=== PATIENT | female | born 1960 | race Caucasian/White ===

== ENCOUNTER 2020-07-10 15:38 | Outpatient (CLI) | payer OTHER, SELFPAY ==
--- NOTE | ~2020-07-10 | MM_ITS ---
EXAMINATION: MM screening [facility] BI w shruthi HISTORY: Screening mammogram TECHNIQUE: Craniocaudal and mediolateral oblique 3-D tomosynthesis images were obtained and synthetic 2-D images were generated. CAD analysis was submitted and interpreted. COMPARISON: 03/11/2019, 11/28/2017, 11/17/2016 bilateral digital screening mammogram examinations BREAST PARENCHYMAL COMPOSITION: The breasts are almost entirely fatty. FINDINGS: There is no evidence of suspicious mass, calcification, or architectural distortion to sugg est malignancy in either breast. There has been no suspicious interval change. IMPRESSION: 1. No mammographic evidence of malignancy. 2. Recommend routine screening mammography in one year. BI-RADS Category 1: Negative Reviewed, dictated and finalized at location A.
== END 2020-07-10 15:39 | disposition home or self-care (01) ==
PROVIDERS: PCP Family Medicine; Visit Provider Family Medicine
DX: Z12.31 Encounter for screening mammogram for malignant neoplasm of breast (principal)
CPT/HCPCS: 77063; 77067

== ENCOUNTER 2021-04-08 23:41 | Emergency (ER) | payer SELFPAY ==
[2021-04-09 00:10] VITALS: BP 105/43; PULSE 86; RESP 18; TEMP 36.7; O2SAT 97
[2021-04-09 02:12] VITALS: BP 137/97; PULSE 76; RESP 18; O2SAT 96
--- NOTE | 2021-04-09 02:12 | PC.NURSE ---
Pt presents to ED with complaints of dizziness that onset earlier yesterday. Pt states she has been experiencing intermittent episodes throughout the week. Pt denies a diagnosis of vertigo, loc and visual disturbances at this time. Pt noted to be alert and oriented x4. Denies similar episodes in the past, chest pain, nvd, fever and chills. Pt has stable vitals and is in no obvious distress with spouse at bedside. Pt advised to press call button for assistance. Button and vitals within reach.
--- NOTE | 2021-04-09 03:06 | ED.GENADULT ---
HPI - General Adult General Chief complaint: Unspecified Stated complaint: htn, chills, anxiety, dizziness Time Seen by Provider: 04/09/21 01:34 History of Present Illness HPI narrative: Patient is a 60-year-old female who presents the emergency department with chief complaint of dizziness. The patient states that for the last several days she has been having symptoms that are intermittent that she describes as a dizziness sensation. Patient states it feels as though she feels lightheaded and also feels as though the room spinning. The patient states is worse with movement of her head reports that it is improved at rest. Patient states that the episodes come and go particular random reports. Related Data Allergies Allergy/AdvReac Type Severity Reaction Status Date / Time No Known Allergies Allergy Unknown Verified 04/09/21 00:16 Review of Systems Review of Systems: Narrative: A 10 system review of systems was completed on the patient and is negative except for what is stated in the HPI. Nursing and ancillary documentation was reviewed. 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 Gender identity (if verbalized by the patient): Female Spiritual care concerns: Yes Agree to blood products: Yes Exam Narrative: Exam Narrative: GENERAL: Well-appearing, well-nourished, and in no acute distress. HEAD: Normocephalic, atraumatic. EYES: PERRLA and EOMI. ENT: Nares clear, no rhinorrhea or epistaxis. Mucous membranes moist. NECK: Supple. CHEST: Clear to auscultation. No respiratory distress. HEART: Regular rate and rhythm. No murmur heard. Normal peripheral pulses. ABDOMEN: Soft, nontender, nondistended, normal active bowel sounds. EXTREMITIES: Normal range of motion. No edema. SKIN: Warm, dry, no rash. NEURO: No focal deficits. Alert and oriented x3. Patient is a positive [place] PSYCH: Normal mood and affect. Course Vital Signs Vital signs: Vital Signs Temperature 36.7 C 04/09/21 00:10 Pulse Rate 86 04/09/21 00:10 Respiratory Rate 18 04/09/21 00:10 Blood Pressure 105/43 L 04/09/21 00:10 Pulse Oximetry 97 04/09/21 00:10 Temperature 36.7 C 04/09/21 00:10 Pulse Rate 67 04/09/21 04:59 Respiratory Rate 18 04/09/21 04:59 Blood Pressure 124/86 04/09/21 04:59 Pulse Oximetry 100 04/09/21 04:59 Medical Decision Making Vital Signs Vital Signs: Vital Signs Temperature 36.7 C 04/09/21 00:10 Pulse Rate 86 04/09/21 00:10 Respiratory Rate 18 04/09/21 00:10 Blood Pressure 105/43 L 04/09/21 00:10 Pulse Oximetry 97 04/09/21 00:10 Temperature 36.7 C 04/09/21 00:10 Pulse Rate 67 04/09/21 04:59 Respiratory Rate 18 04/09/21 04:59 Blood Pressure 124/86 04/09/21 04:59 Pulse Oximetry 100 04/09/21 04:59 Lab Data Result diagrams: 04/09/21 03:57 04/09/21 03:57 Labs: Lab Results 04/09/21 04/09/21 04/09/21 Range/Units 03:57 03:57 04:42 WBC 11.6 H (4.5-10.0) K/mm3 RBC 5.54 H (4.2-5.4) M/mm3 Hgb 16.4 H (12.0-15.0) g/dL Hct 49.3 H (37.0-47.0) % MCV 89.0 (80-100) fl MCH 29.6 (26-34) pg MCHC 33.3
--- NOTE | 2021-04-09 03:23 | PC.NURSE ---
Pt resting on cart in its lowest position with call button and personal items within reach. No complaints or concerns voiced at this time.
[2021-04-09 04:03] LABS: Basophils Percent Auto 0.3 % (0.2-1.2); Eosinophils Absolute Auto 0.1 K/mm3 (0-0.3); Eosinophils Percent Auto 0.9 % (0-4.4); Hematocrit 49.3 % (37.0-47.0); Hemoglobin 16.4 g/dL (12.0-15.0); Immature Granulocyte Absolute 0.06 K/mm3 (0.00-0.031); Immature Granulocyte Percent A 0.5 % (0-0.5); Lymphocytes Absolute Auto 3.48 K/mm3 (0.9-3.2); Lymphocytes Percent Auto 29.9 % (18.3-44.2); Mean Corpuscular HGB Conc 33.3 g/dl (32-36); Mean Corpuscular Hemoglobin 29.6 pg (26-34); Mean Platelet Volume 10.3 fl (7.4-10.4); Monocytes Absolute Auto 0.8 K/mm3 (0.1-0.6); Monocytes Percent Auto 6.7 % (2.6-8.5); Neutrophils Absolute Auto 7.2 K/mm3 (1.3-6.7); Neutrophils Percent Auto 61.7 % (45.5-73.1); Platelet Count Result 245 k/mm3 (150-375); Red Blood Count 5.54 M/mm3 (4.2-5.4); Red Cell Distribution Width 13.2 % (11.5-14.5); White Blood Count 11.6 K/mm3 (4.5-10.0)
[2021-04-09 04:13] LABS: Alanine Aminotransferase 17 U/L (4-35); Albumin Level 4.2 g/dL (3.5-5.1); Alkaline Phosphatase 64 U/L (38-126); Anion Gap 8 mmol/L (8-16); Aspartate Amino Transferase 22 U/L (14-36); Bilirubin,Total 0.5 mg/dL (0.2-1.3); Blood Urea Nitrogen 15 mg/dL (7-17); Calcium 9.3 mg/dL (8.4-10.2); Carbon Dioxide 23 mmol/L (22-30); Chloride 109 mmol/L (98-107); Estimated CRCL calculation 87 ml/min; Estimated Glomerular Filt Rate > 60; Glucose 101 mg/dL (65-105); Potassium 4.1 mmol/L (3.4-5.0); Sodium 140 mmol/L (137-145)
[2021-04-09] MEDS: MECLIZINE HCL 25 MG TABLET PO (04:32)
--- NOTE | 2021-04-09 04:33 | PC.NURSE ---
pt ambulated in [place] to restroom to provide urine specimen.
--- NOTE | 2021-04-09 04:38 | PC.NURSE ---
Pt now back in room resting on cart in its lowest position with call button and personal items within reach. Pt alert and oriented x4 and is in no obvious distress with stable vitals. Spouse remains at bedside and pt aware to press call button for assistance.
--- NOTE | 2021-04-09 04:55 | PC.NURSE ---
Pt now back in room resting on cart in its lowest position with call button and personal items within reach. Advised to press call button for assistance. Spouse is present at bedside.
[2021-04-09 04:56] LABS: Add Urine Microscopic? YES; Appearance Urine Cloudy (Clear); Bacteria Urine 2+ /hpf; Bilirubin Urine Negative (Negative); Blood Urine 2+ (Negative); Color Urine Yellow (Yellow); Glucose Urine UA Negative (Negative); Ketones Urine Negative (Negative); Leukocyte Esterase Ur Negative LEU/UL (Negative); Mucus Urine Rare /lpf; Nitrate Urine Negative (Negative); Protein Urine Negative (Negative); Specific Grav Ur 1.019 (1.001-1.035); Squamous Epithelial Cell Urine Moderate /hpf (Few); Urobilinogen Urine Negative mg/dL (<2.0); WBC Urine 0-3 /hpf
[2021-04-09 04:59] VITALS: BP 124/86; PULSE 67; RESP 18; O2SAT 100
== END 2021-04-09 05:17 | disposition home or self-care (01) ==
PROVIDERS: Emergency Provider Emergency Medicine; PCP Physician Assistant
DX: R42 Dizziness and giddiness (principal); E78.5 Hyperlipidemia, unspecified; I10 Essential (primary) hypertension; F17.210 Nicotine dependence, cigarettes, uncomplicated
CPT/HCPCS: 36415; 80053; 81001; 85025; 99283; A9270

== ENCOUNTER 2021-08-13 09:57 | Outpatient (CLI) | payer OTHER, SELFPAY ==
--- NOTE | ~2021-08-13 | MM_ITS ---
EXAMINATION: MM screening [facility] BI w shruthi HISTORY: Screening mammogram TECHNIQUE: Craniocaudal and mediolateral oblique 3-D tomosynthesis images were obtained and synthetic 2-D images were generated. CAD analysis was submitted and interpreted. COMPARISON: 07/10/2020, 03/11/2019, 11/28/2017 BREAST PARENCHYMAL COMPOSITION: The breasts are almost entirely fatty. FINDINGS: There is no evidence of suspicious mass, calcification, or architectural distortion to sugg est malignancy in either breast. There has been no suspicious interval change. IMPRESSION: 1. No mammographic evidence of malignancy. 2. Recommend routine screening mammography in one year. BI-RADS Category 1: Negative Reviewed, dictated and finalized at location A.
== END 2021-08-13 09:58 | disposition home or self-care (01) ==
LOC: ANHIMG 10:03
PROVIDERS: PCP Family Medicine; Visit Provider Family Medicine
DX: Z12.31 Encounter for screening mammogram for malignant neoplasm of breast (principal)
CPT/HCPCS: 77063; 77067

== ENCOUNTER 2022-05-16 08:24 | Emergency (ER) | payer OTHER, SELFPAY ==
[2022-05-16 08:27] VITALS: BP 109/95; PULSE 102; RESP 14; TEMP 36.6; O2SAT 98
--- NOTE | 2022-05-16 09:03 | ED.EXTPRO ---
HPI - Extremity Problem General Chief complaint: Extremity Problem,Nontraumatic Stated complaint: spider bite Time Seen by Provider: 05/16/22 08:49 History of Present Illness HPI Narrative: 62-year-old female presents emergency room secondary spider bite to the left upper extremity. Happened on Monday. Now she is got increasing redness and swelling to the left forearm. Denies any chills or fevers. She not take anything for this. It is only to the left forearm area is where she is having this. She had no prior allergic type reaction. Related Data Allergies Allergy/AdvReac Type Severity Reaction Status Date / Time No Known Allergies Allergy Unknown Verified 05/16/22 09:00 Review of Systems Review of Systems: CONSTITUTIONAL: Denies fever, chills, or sweats. EYES: Denies visual changes, redness, or discharge. ENT: Denies rhinorrhea, congestion, sore throat, or otalgia. CARDIOVASCULAR: Denies chest pain, palpitations, or edema. RESPIRATORY: Denies cough or dyspnea. GASTROINTESTINAL: Denies abdominal pain, nausea, vomiting, or diarrhea. GENITOURINARY: Denies dysuria or hematuria. SKIN: Denies rash or itching. MUSCULOSKELETAL: Denies back pain, joint pain, or myalgia. Redness swelling to the left upper extremity from the wrist almost to the elbow region NEUROLOGIC: Denies headache, numbness, or weakness. PSYCHIATRIC: Denies anxiety or depression. 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 Gender identity (if verbalized by the patient): Female Spiritual care concerns: Yes Agree to blood products: Yes Exam Narrative: APPEARANCE: Well appearing, no pain or distress, well-nourished. Head normocephalic and atraumatic. NECK: Supple. No adenopathy, no masses. RESPIRATORY: Airway patent, respirations nonlabored. Clear to auscultation bilaterally, no rales, rhonchi, wheezing. CARDIOVASCULAR: Regular rate and rhythm without murmurs, rubs, or gallops. ABDOMINAL: Soft, nontender, nondistended, no hepatosplenomegaly Musculoskeletal: Moves all extremities. Strength/ROM intact, erythema noted to the left upper extremity on the volar aspect of the left forearm from about the wrist region almost to the elbow. Is noted to be some swelling to the area. There is no purulent drainage. Can see a small puncture site to the left wrist region. Good distal pulses and full range of motion NEURO: Alert. Cranial nerves II through XII intact. Normal gait. Good coordination. Nonfocal examination. SKIN:: Warm, dry. Normal Color PSYCHIATRIC: Normal affect/mood, normal interaction Course Vital Signs Vital signs: Vital Signs Temperature 97.9 F 05/16/22 08:27 Pulse Rate 102 H 05/16/22 08:27 Respiratory Rate 14 05/16/22 08:27 Blood Pressure 109/95 H 05/16/22 08:27 Pulse Oximetry 98 05/16/22 08:27 Oxygen Delivery Room Air 05/16/22 08:27 Temperature 97.9 F 05/16/22 08:27 Pulse Rate 102 H 05/16/22 08:27 Respiratory Rate 14 05/16/22 08:27 Blood Pressure 109/95 H 05/16/22 08:27 Pulse Oximetry 98 05/16/22 08:27 Oxygen Delivery Room Air 05/16/22 08:27 MDM - Extremity (Nontraumatic) MDM Narrative Medical decision making narrative: Patient has spider bite to the left wrist checked
[2022-05-16] MEDS: TETANUS,DIPHTHERIA,AC PERTUSSIS ADULT (0.5 ML) BOOSTRIX IM (09:07)
== END 2022-05-16 09:23 | disposition home or self-care (01) ==
LOC: ANHED 09:12
PROVIDERS: Emergency Provider Emergency Medicine; PCP Family Medicine
DX: L03.114 Cellulitis of left upper limb (principal); T63.301A Toxic effect of unspecified spider venom, accidental (unintentional), initial encounter; Z23 Encounter for immunization; E78.5 Hyperlipidemia, unspecified; I10 Essential (primary) hypertension; F17.210 Nicotine dependence, cigarettes, uncomplicated
CPT/HCPCS: 90471; 90715; 99283

== ENCOUNTER 2022-05-19 05:31 | Inpatient (IN) | payer OTHER, SELFPAY ==
[2022-05-19] VITALS (7 sets, daily range): BP systolic 114–136; BP diastolic 58–80; PULSE 84–96; RESP 16–18; TEMP 36.3–37.6; O2SAT 94–100; BMI 31.3
--- NOTE | ~2022-05-19 | US_ITS ---
EXAMINATION: US venous doppler UE DATE: 05/21/2022 10:36 INDICATION: Worsening left upper extremity edema. TECHNIQUE: Grayscale ultrasound images without and with compression and Doppler ultrasound images of the left upper extremity veins were obtained. COMPARISON: None. FINDINGS: The visualized portions of the left internal jugular vein, subclavian vein, axillary vein, brachial v eins, basilic vein, cephalic vein, radial vein, and ulnar vein are patent. Subcutaneous edema and ill -defined hypoechoic areas in the deep anterior wrist tissues in the area of clinical concern, describ ed as a bite in the tech annotations. IMPRESSION: 1. No deep venous thrombosis. 2. Irregular deep tissue fluid and/or phlegmon, with overlying edema, may represent cellulitis and/or deep tissue infection, developing abscess not excluded. Reviewed, dictated and finalized at location K. IMPRESSION: 1. No deep venous thrombosis. 2. Irregular deep tissue fluid and/or phlegmon, with overlying edema, may repre sent cellulitis and/or deep tissue infection, developing abscess not excluded.
--- NOTE | ~2022-05-19 | CT_ITS ---
EXAMINATION: CT UE LT w con DATE: 05/19/2022 17:40 INDICATION: Left upper extremity cellulitis. TECHNIQUE: Computed tomography (CT) of the left upper extremity was performed with 100 mL Omnipaque 3 00 intravenous contrast. Automated exposure control and iterative reconstruction technique were emplo yed. The dose-length product was 1039.78 mGy-cm. COMPARISON: None FINDINGS: Bone alignment is normal. No fracture. There is mild osteoarthritis of glenohumeral joint. There is degenerative cystic change in distal ulna. There is severe osteoarthritis of triscaphe joint and mild osteoarthritis of first carpometacarpal joint. No elbow joint effusion. There is fat strand ing and skin thickening in the arm and forearm. No abscess. IMPRESSION: 1. Subcutaneous edema in left upper extremity. No abscess. 2. Polyarticular osteoarthritis. Reviewed, dictated and finalized at location A.
--- NOTE | ~2022-05-19 | US_ITS ---
EXAMINATION: US soft tissue UE LT DATE: 05/20/2022 14:24 INDICATION: Soft tissue swelling at the volar aspect of the left wrist TECHNIQUE: Multiple grayscale and Doppler ultrasound images of the region of concern at the left wris t were obtained. COMPARISON: CT dated 05/19/2022 FINDINGS: There is skin thickening and nonloculated mild subcutaneous edema overlying the flexor tendons at the volar aspect of the wrist. There are few echogenic and shadowing foci at in the superficial subcutan eous tissues which on CT appear to correspond to couple surgical clips. No abscess. No tenosynovitis. IMPRESSION: 1. Cellulitis with skin thickening and subcutaneous edema at the volar aspect of the wrist. No absces s. Reviewed, dictated and finalized at location B. IMPRESSION: 1. Cellulitis with skin thickening and subcutaneous edema at the volar aspect o f the wrist. No abscess.
[2022-05-19] MEDS: MORPHINE SULFATE (*CRX) 4 MG/ML INJ IV PUSH ×3 (06:19→17:46)
--- NOTE | 2022-05-19 06:27 | ED.GENADULT ---
HPI - General Adult General Chief complaint: Skin/Abscess/Foreign Body Stated complaint: SWELLING, REDNESS ARM Time Seen by Provider: 05/19/22 05:40 History of Present Illness HPI narrative: Patient is a 62-year-old female who presents ER with redness of the left arm. Patient believes she was bit by a spider on 05/14/2022. She was seen in the ER on 05/16/2022 for erythema of her arm. She was started on cephalexin. She reports redness is spreading up her arm. No fevers or chills. She has pain throughout her arm where it is red. The bite patel on her left forearm were not draining any pus or any clear fluid. She maintains range of motion at her elbow and wrist. Related Data Allergies Allergy/AdvReac Type Severity Reaction Status Date / Time No Known Allergies Allergy Unknown Verified 05/19/22 05:34 Review of Systems Review of Systems: All systems reviewed & are unremarkable except as noted in HPI and below Constitutional: Constitutional: Denies chills, Denies fatigue and Denies fever(s) ENT: Denies nasal congestion and Denies sore throat Cardiovascular: Cardiovascular: Denies chest pain, Denies rapid heart rate and Denies radiating jaw, neck or arm pain Respiratory: Respiratory: Denies cough, Denies dyspnea and Denies wheezing Gastrointestinal: Gastrointestinal: Denies abdominal pain, Denies nausea and Denies vomiting Musculoskeletal: Musculoskeletal: Denies back pain, Denies arthralgias and Denies joint swelling Integumentary/Breasts: Skin/Breast: Reports pruritus, Reports erythema, Reports rash and Reports skin ulcer PMFSH Past Medical History Medical History Chronic pain in left foot Heavy smoker Hyperlipidemia Hypertension Under or uninsured Surgical History Surgical History History of cholecystectomy Family History Family History Other Family history of malignant neoplasm of stomach Social History Social History Smoking packs per day: 1 Smoking cigarettes per day: 20.0 Tobacco type: cigarettes Second hand tobacco smoke exposure: Yes Alcohol intake: never Substance use: never Substance use type: does not use 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 Gender identity (if verbalized by the patient): Female Spiritual care concerns: Yes Agree to blood products: Yes Exam Narrative: GENERAL: Well-appearing, well-nourished, and in no acute distress. HEAD: Normocephalic, atraumatic. EYES: PERRL and EOMI. ENT: Mucous membranes moist. CHEST: Clear to auscultation. No respiratory distress. HEART: Regular rate and rhythm. Normal peripheral pulses. EXTREMITIES: Normal range of motion. No edema. 6 SKIN: Warm, dry, no rash. Cellulitis of the left forearm volar aspect from the wrist extending up past the elbow to the mid upper arm. Tender and blanching. Bite patel to the wrist and midforearm without drainage. NEURO: Alert and oriented x3. PSYCH: Normal mood and affect. Course Vital Signs Vital signs: Vital Signs Temperature 97.4 F L 05/19/22 05:28 Pulse Rate 92 05/19/22 05:28 Respiratory Rate 18 05/19/22 05:28 Blood Pressure 128/58 L 05/19/22 05:28 Pulse Oximetry 96 05/19/22 05:28 Oxygen Delivery Room Air 05/19/22 05:28 Temperature 97.4 F L 05/19/22 05:28 Pulse Rate 92 05/19/22 05:28 Respiratory Rate 18 05/19/22 05:28 Blood Pressure 128/58 L 05/19/22 05:28 Pulse Oximetry 96 05/19/22 05:28 Oxygen Delivery Room Air 05/19/22 05:28 Medical Decision Making Vital Signs Vital Signs: Vital Signs Temperature 97.4 F L 05/19/22 05:28 Pulse Rate 92 05/19/22 05:28 Respiratory Rate 18 05/19/22 05:28 Blood Pressure 128/58 L 05/19/22 05:28 Pulse Oximetry 96 05/19/22 05:28 Oxygen Delivery Room Air 05/19/22 05:28 Te
[2022-05-19 06:43] LABS: Basophils Percent Auto 0.2 % (0.2-1.2); Eosinophils Absolute Auto 0.3 K/mm3 (0-0.3); Eosinophils Percent Auto 2.5 % (0-4.4); Hemoglobin 14.4 g/dL (12.0-15.0); Immature Granulocyte Absolute 0.08 K/mm3 (0.00-0.031); Immature Granulocyte Percent A 0.6 % (0-0.5); Lymphocytes Absolute Auto 0.93 K/mm3 (0.9-3.2); Lymphocytes Percent Auto 7.5 % (18.3-44.2); Mean Corpuscular HGB Conc 32.7 g/dl (32-36); Mean Corpuscular Hemoglobin 29.3 pg (26-34); Mean Corpuscular Volume 89.6 fl (80-100); Mean Platelet Volume 10.8 fl (7.4-10.4); Monocytes Absolute Auto 0.7 K/mm3 (0.1-0.6); Monocytes Percent Auto 5.6 % (2.6-8.5); Neutrophils Absolute Auto 10.3 K/mm3 (1.3-6.7); Neutrophils Percent Auto 83.6 % (45.5-73.1); Platelet Count Result 224 k/mm3 (150-375); Red Blood Count 4.91 M/mm3 (4.2-5.4); Red Cell Distribution Width 13.3 % (11.5-14.5); White Blood Count 12.4 K/mm3 (4.5-10.0)
[2022-05-19 06:53] LABS: Anion Gap 9 mmol/L (8-16); Blood Urea Nitrogen 14 mg/dL (7-17); CRP 2.4 mg/dL (<1.0); Calcium 8.7 mg/dL (8.4-10.2); Carbon Dioxide 23 mmol/L (22-30); Chloride 105 mmol/L (98-107); Estimated CRCL calculation 98 ml/min; Estimated Glomerular Filt Rate > 60; Glucose 119 mg/dL (65-110); Sodium 137 mmol/L (137-145)
[2022-05-19 07:23] LABS: Erythrocyte Sedimentation Rate 13 mm/hr (0-20)
[2022-05-19 07:24] LABS: SARS-CoV-2 RNA PCR Negative
--- NOTE | 2022-05-19 10:02 | ADMGEN ---
This patient, Yenifer Grover, was admitted to [facility] Surg Room 328-01at 0930. Patient/family oriented to hospital policies and general routines including ID bracelet, bed and alarms, visiting hours, pain management, procedures, bathroom and other care routines, personal items, smoking policy, room service/diet, and visiting hours. Information on how to activate the Rapid Response Team has been discussed. Patient/Family are encouraged to report perceived risks to care and to ask questions if they do not understand what they are told or what they should do.
--- NOTE | 2022-05-19 11:30 | PM.IMHP ---
H&P: HPI History of Present Illness Date/Time: 05/19/22 11:30 Chief Complaint: Bug bite Narrative: Patient is a 8-year-old female with a past medical history of hypertension, hyperlipidemia who presented to the ED with complaints erythremia, swelling, itching and pain to the left extremity. She stated that this all started on Monday night. Patient stated that she has a drain I at 3:00 a.m. in the morning due to itching, which created to get up. When she got up and the morning to make the bed she founded had spider. She said on Monday she had 2 knots 1 in her forearm and 1 on her wrist which appear to be stable. Monday she stated that she had known oz and her arm was completely swollen and she came to the hospital. She came to the hospital they prescribed her some Keflex. She said disease she has been taking her antibiotics we should be however she went to bed on Monday at 10:00 p.m. at 2:00 a.m. in the morning she woke up to burning and hurting arm. She stated that is very painful when it currently as a 4-10 however she just had a pain pill. She also stated that she is having many different sensations in her arm ranging from itching, burning, pain, fever. patient stated that her arm has been swollen like that for couple days. Her arm is very swollen has warmth and it is swollen double to her other arm. She has 2 spots 1 on her wrist and 1 on her forearm have look like to purulent scabs. She denies chest pain, shortness of breath, nausea, vomiting, fevers, sweats, visual or hearing changes, weakness or fatigue. She is being admitted to the hospitalist service as inpatient Review of Systems Review of Systems: All systems reviewed & are unremarkable except as noted in HPI and below PMFSH Past Medical History Medical History Chronic pain in left foot Heavy smoker Hyperlipidemia Hypertension Under or uninsured Surgical History Surgical History History of cholecystectomy Family History Family History Other Family history of malignant neoplasm of stomach Social History Social History Social History: Patient lives by herself, and is a . She elects her mother in law, Josefina Grover. She also has two step daughters. She denies having any pets. 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 Gender identity (if verbalized by the patient): Female Sexual Orientation (if Verbalized by the Patient): Straight or Heterosexual Spiritual care concerns: No Agree to blood products: Yes Meds Home Medications and Allergies Home Medications Medication Instructions Recorded Confirmed Type amlodipine 10 mg tablet 10 mg PO DAILY #30 tabs 12/20/21 05/19/22 Rx lorazepam 0.5 mg tablet 0.5 mg PO DAILY PRN stress #30 tabs 05/05/22 05/19/22 Rx hydrocodone 5 mg-acetaminophen 325 1 tablet PO Q6H PRN pain #120 tabs 05/10/22 05/19/22 Rx mg tablet cephalexin 500 mg capsule 500 mg PO Q8H #30 caps 05/16/22 05/19/22 Rx Allergies Allergy/AdvReac Type Severity Reaction Status Date / Time No Known Allergies Allergy Unknown Verified 05/19/22 05:34 Vital Signs Vital Signs - 24 hr 05/19/22 05:28 Temperature 97.4 F L Pulse Rate 92 Respiratory Rate 18 Blood Pressure 128/58 L Pulse Oximetry 96 Oxygen Delivery Room Air Exam Const: General: cooperative, no a
[2022-05-19] MEDS: HYDROcodone/acetaminophen (*CRX) 5-325 MG TABLET 1 TAB PO ×2 (15:47→20:05)
[2022-05-19] MEDS: MUPIROCIN 2% OINT 22 GM TUBE 1 APPLIC TOPICAL (16:20)
[2022-05-19] MEDS: BETAMETHASONE/CLOTRIMAZOLE CR 15 GM TUBE 1 APPLIC TOPICAL ×2 (16:21→19:59)
[2022-05-19] MEDS: cefTRIAXone 2 GM in SODIUM CHLORIDE 0.9% IV 100 ML 200 ML IVPB (17:45)
[2022-05-20] MEDS: MUPIROCIN 2% OINT 22 GM TUBE 1 APPLIC TOPICAL ×3 (04:14→20:15)
[2022-05-20] MEDS: HYDROcodone/acetaminophen (*CRX) 5-325 MG TABLET 1 TAB PO ×4 (04:16→20:15)
[2022-05-20] MEDS: MORPHINE SULFATE (*CRX) 4 MG/ML INJ IV PUSH ×4 (05:57→22:34)
[2022-05-20 06:00] VITALS: BP 112/74; PULSE 82; RESP 18; TEMP 36.7; O2SAT 95
[2022-05-20 06:38] LABS: Basophils Absolute Auto 0.1 K/mm3 (0.0-0.1); Basophils Percent Auto 0.4 % (0.2-1.2); Eosinophils Absolute Auto 0.4 K/mm3 (0-0.3); Eosinophils Percent Auto 2.5 % (0-4.4); Hematocrit 43.5 % (37.0-47.0); Immature Granulocyte Absolute 0.09 K/mm3 (0.00-0.031); Immature Granulocyte Percent A 0.6 % (0-0.5); Lymphocytes Absolute Auto 2.17 K/mm3 (0.9-3.2); Lymphocytes Percent Auto 15.3 % (18.3-44.2); Mean Corpuscular HGB Conc 32.2 g/dl (32-36); Mean Corpuscular Hemoglobin 29.3 pg (26-34); Mean Platelet Volume 10.4 fl (7.4-10.4); Monocytes Absolute Auto 0.9 K/mm3 (0.1-0.6); Monocytes Percent Auto 6.4 % (2.6-8.5); Neutrophils Absolute Auto 10.6 K/mm3 (1.3-6.7); Neutrophils Percent Auto 74.8 % (45.5-73.1); Platelet Count Result 218 k/mm3 (150-375); Red Blood Count 4.78 M/mm3 (4.2-5.4); Red Cell Distribution Width 13.3 % (11.5-14.5); White Blood Count 14.2 K/mm3 (4.5-10.0)
[2022-05-20 06:51] LABS: Alanine Aminotransferase 50 U/L (6-35); Albumin Level 3.9 g/dL (3.5-5.1); Alkaline Phosphatase 65 U/L (38-126); Anion Gap 8 mmol/L (8-16); Aspartate Amino Transferase 33 U/L (14-36); Blood Urea Nitrogen 8 mg/dL (7-17); Calcium 8.4 mg/dL (8.4-10.2); Carbon Dioxide 25 mmol/L (22-30); Chloride 106 mmol/L (98-107); Estimated CRCL calculation 85 ml/min; Estimated Glomerular Filt Rate > 60; Glucose 121 mg/dL (65-110); Magnesium 2.1 mg/dL (1.6-2.3); Sodium 139 mmol/L (137-145)
[2022-05-20] MEDS: amLODIPine BESYLATE 5 MG TABLET 10 MG PO (08:23)
[2022-05-20] MEDS: BETAMETHASONE/CLOTRIMAZOLE CR 15 GM TUBE 1 APPLIC TOPICAL ×2 (08:25→20:15)
--- NOTE | 2022-05-20 08:30 | PM.IMPN ---
Progress Note: A&P Assessment and Plan (1) Cellulitis: Code(s): L03.90 - Cellulitis, unspecified Status: Acute Assessment and Plan: Left arm is swollen, red, with warmth Continue Vancomycin, add ceftriaxone WBC 14.2 Wound care consult, see wound note Trend redness, warmth, and swelling Swelling is worse today pain medications Trend induration CT with contrast of the left arm (2) Bug bite: Code(s): W57.XXXA - Bitten or stung by nonvenomous insect and other nonvenomous arthropods, initial encounter Status: Acute Assessment and Plan: Patient reported a spider bite Wound care consult see above (cellulitis) Not convinced this is a bug bit at this point (3) Primary hypertension: Code(s): I10 - Essential (primary) hypertension Status: Acute Assessment and Plan: BP is 103/63 Continue home amlodipine 10mg Trend BP Adjust therapy as indicated Time Spent With Patient Time with patient: Greater than 35 minutes Subjective Date/time seen: 05/20/22829 Interval history: 05/20/22829 She herself is feeling ok, she denies chest pain, shortness of breath, nausea, vomiting, diarrhea, constipation, weakness, or fatigue. She did however state that she thinks her arm is worse. It did appear to be more edematous. She also has a new spot forming and it also has a knot under it. CT did not show any acute findings other than edema. Talked to Dr. Gurrola about the arm, as the main concern is compartment syndrome. 05/19/22? 11:30 Patient is a 8-year-old female with a past medical history of hypertension, hyperlipidemia who presented to the ED with complaints erythremia, swelling, itching and pain to the left extremity.? She stated that this all started on? Monday night.? Patient stated that she has a drain I at 3:00 a.m. in the morning due to itching, which created to get up.? When she got up and the morning to make the bed she founded had spider.? She said on Monday she had 2 knots 1 in her forearm and 1 on her wrist which appear to be stable.? Monday she stated that she had known oz and her arm was completely swollen and she came to the hospital.? She came to the hospital they prescribed her some Keflex.? She said disease she has been taking her antibiotics we should be however she went to bed on Monday at 10:00 p.m. at 2:00 a.m. in the morning she woke up to burning and hurting arm.? She stated that is very painful when it currently as a 4-10 however she just had a pain pill.? She also stated that she is having many different sensations in her arm ranging from itching, burning, pain, fever. patient stated that her arm has been swollen like that for couple days.? Her arm is very swollen has warmth and it is swollen double to her other arm.? She has 2 spots 1 on her wrist and 1 on her forearm have look like to purulent scabs. She denies chest pain, shortness of breath, nausea, vomiting, fevers, sweats, visual or hearing changes, weakness or fatigue.? Review of Systems Review of Systems: All systems reviewed & are unremarkable except as noted in HPI and below Exam Const: General: cooperative, no acute distress, well developed, alert, awake, anxious and uncomfortable Nutritional Appearance: well nourished and overweight Orientation/consciousness: oriented to person, oriented to place, oriented to time and patient oriented x3 Limitations: no limitations HENMT: Head: normal to inspection Ears: hearing grossly normal bilaterally General nose exam: Normal external nose present Mouth: Yes Normal oral and palatal mucosa present, Yes lip normal and Yes tongue normal Teeth and gingiva: abnormal tooth and associated gingiva and poor dentition Eyes: General: appearance normal, both eyes and all related structures Neck: Neck: normal visual inspection, full ROM, trachea midline and supple Chest: Chest palpation & inspection: normal inspectio
[2022-05-20 11:42] VITALS: BP 103/63
[2022-05-20 14:00] VITALS: BP 115/81; PULSE 70; RESP 16; TEMP 36.6; O2SAT 96
[2022-05-20] MEDS: cefTRIAXone 2 GM in SODIUM CHLORIDE 0.9% IV 100 ML 200 ML IVPB (14:43)
--- NOTE | 2022-05-20 17:32 | PM.CNGS ---
Assessment and Plan Assessment and plan (1) Cellulitis: Code(s): L03.90 - Cellulitis, unspecified Status: Acute Assessment and Plan: I agree that it is cellulitis of unknown etiology. There is nothing draining that we can culture at this time that I see. There appears to be 2 slightly brown areas of skin they were very small 1 on the volar surface of the wrist the other 1 Ladarius in the mid forearm that do not appear to be actual bites but may have been injury sites on the epidermis. Careful compression of both these reveals no drainage of pus. Both CT and ultrasound of the arm does not show any drainable abscess cavities. Therefore, recommend continue IOP IV antibiotics, elevate the arm above the level of the heart at all times if possible continue good range of motion perhaps consider OT consultation for this. If not already on 1 May consider upper extremity venous Dopplers on this side to be sure there is not a blood clot. (2) Heavy smoker: Code(s): F17.200 - Nicotine dependence, unspecified, uncomplicated Status: Acute Assessment and Plan: Recommend cessation. May need neck a Nicotine patch while in the hospital. History of Present Illness Consult details Consult date: 05/20/22 Reason for consult: other (Left arm swelling and possible bug bite) Requesting physician: Nicola Luis APN-C Narrative: This patient is a pleasant overweight 62-year-old white female who states that 2 days prior coming to the hospital she was out working in her yd doing some weed whacking. [place]. She began noticing some itching of her arms while she was sleeping later that night and did scratch on her arms. Mainly her left forearm. Following morning she awoke still having some itching and found out large spider in her bed. She had 2 small sites that she thought might be spider bites on the volar surface of her left forearm. One near the wrist the other 1 Ladarius in the mid forearm. She came to the hospital and was seen as an outpatient and put on cephalexin. However with it not improving and continued worsening swelling she came back 2 days ago and was admitted and placed on ceftriaxone and vancomycin. She continues to elevate the arm to place ice on it but it was felt that perhaps it was getting worse so is asked to see the patient this date. Patient has further history that she does get her nails done. She has never hadMRSA that she knows of. Review of Systems Review of Systems: All systems reviewed & are unremarkable except as noted in HPI and below (HPI) Constitutional: Constitutional: Reports as per HPI, Denies chills and Denies fever(s) Eyes: Eyes: Reports no additional eye complaints ENT: Reports Normal hearing present and Denies dizziness Cardiovascular: Cardiovascular: Reports no additional cardiovascular complaints, Denies chest pain and Denies irregular heart rhythm Respiratory: Respiratory: Reports no additional respiratory complaints Gastrointestinal: Gastrointestinal: Reports no additional gastrointestinal complaints, Denies abdominal pain and Denies bloating Genitourinary: Genitourinary: Denies hematuria Musculoskeletal: Musculoskeletal: Denies back pain Integumentary/Breasts: Skin/Breast: Reports system reviewed and no additional complaints, except as docu Neurologic: Reports Normal hearing present, Denies Abnormal speech present, Denies confusion and Denies dizziness Psychiatric: Psychiatric: Reports no additional psychiatric complaints and Denies confusion Endocrine: Endocrine: Reports no additional endocrine complaints Hematologic/Lymphatic: Hematologic/Lymphatic: Denies easy bleeding and Denies easy bruising Allergic/Immunologic: Allergic/Immunologic: Reports no additional allergic/immunologic complaints [facility] Past Medical History Medical History Chronic pain in left foot Heavy smoker Hyperlipidemia Hypertension Under or uninsured Surgical His
[2022-05-20 18:07] VITALS: BP 123/63
[2022-05-20 19:17] LABS: Vancomycin Trough 11.2 ug/mL (10.0-20.0)
[2022-05-20 21:39] VITALS: BP 119/80; PULSE 62; RESP 18; TEMP 36.4; O2SAT 97
[2022-05-21] MEDS: MORPHINE SULFATE (*CRX) 4 MG/ML INJ IV PUSH ×4 (04:34→19:27)
[2022-05-21 05:34] VITALS: BP 117/81; PULSE 78; RESP 18; TEMP 36.3; O2SAT 93
[2022-05-21 07:28] LABS: Basophils Absolute Auto 0.1 K/mm3 (0.0-0.1); Basophils Percent Auto 0.4 % (0.2-1.2); Eosinophils Absolute Auto 0.3 K/mm3 (0-0.3); Eosinophils Percent Auto 2.8 % (0-4.4); Hemoglobin 13.3 g/dL (12.0-15.0); Immature Granulocyte Absolute 0.11 K/mm3 (0.00-0.031); Immature Granulocyte Percent A 0.9 % (0-0.5); Lymphocytes Percent Auto 16.4 % (18.3-44.2); Mean Corpuscular HGB Conc 32.4 g/dl (32-36); Mean Corpuscular Hemoglobin 29.5 pg (26-34); Mean Corpuscular Volume 90.9 fl (80-100); Mean Platelet Volume 10.4 fl (7.4-10.4); Monocytes Absolute Auto 0.9 K/mm3 (0.1-0.6); Monocytes Percent Auto 7.7 % (2.6-8.5); Neutrophils Absolute Auto 8.3 K/mm3 (1.3-6.7); Neutrophils Percent Auto 71.8 % (45.5-73.1); Platelet Count Result 215 k/mm3 (150-375); Red Blood Count 4.51 M/mm3 (4.2-5.4); Red Cell Distribution Width 13.4 % (11.5-14.5); White Blood Count 11.6 K/mm3 (4.5-10.0)
[2022-05-21 07:40] LABS: Alanine Aminotransferase 133 U/L (6-35); Albumin Level 3.8 g/dL (3.5-5.1); Alkaline Phosphatase 83 U/L (38-126); Anion Gap 3 mmol/L (8-16); Aspartate Amino Transferase 94 U/L (14-36); Bilirubin,Total 0.6 mg/dL (0.2-1.3); Blood Urea Nitrogen 10 mg/dL (7-17); Calcium 8.4 mg/dL (8.4-10.2); Carbon Dioxide 28 mmol/L (22-30); Chloride 107 mmol/L (98-107); Estimated CRCL calculation 85 ml/min; Estimated Glomerular Filt Rate > 60; Glucose 100 mg/dL (65-110); Magnesium 2.2 mg/dL (1.6-2.3); Potassium 4.3 mmol/L (3.4-5.0); Sodium 138 mmol/L (137-145)
[2022-05-21] MEDS: HYDROcodone/acetaminophen (*CRX) 5-325 MG TABLET 1 TAB PO ×3 (08:19→22:17)
[2022-05-21] MEDS: amLODIPine BESYLATE 5 MG TABLET 10 MG PO (08:19)
--- NOTE | 2022-05-21 10:00 | PM.IMPN ---
Progress Note: A&P Assessment and Plan (1) Cellulitis: Code(s): L03.90 - Cellulitis, unspecified Status: Acute Assessment and Plan: Left arm is swollen, red, with warmth Continue Vancomycin, add ceftriaxone WBC 11.6 Wound care consult, see wound note Trend redness, warmth, and swelling Swelling seems to be better today along with the redness and warmth pain medications Trend induration CT with contrast of the left arm Subcutaneous edema no abscess venous Dopplers pending soft tissue ultrasound found cellulitis with skin thickening and subcutaneous edema (2) Bug bite: Code(s): W57.XXXA - Bitten or stung by nonvenomous insect and other nonvenomous arthropods, initial encounter Status: Acute Assessment and Plan: Patient reported a spider bite Wound care consult see above (cellulitis) Not convinced this is a bug bit at this point (3) Primary hypertension: Code(s): I10 - Essential (primary) hypertension Status: Acute Assessment and Plan: BP is 117/81 Continue home amlodipine 10mg Trend BP Adjust therapy as indicated Time Spent With Patient Time with patient: Greater than 35 minutes Subjective Date/time seen: 05/21/22 10:00 Interval history: 05/21/22 10:00 Patient stated she is feeling okay today. She stated that she woke up in feels a little groggy. She did state that she has been in a little in the tired side. Her pain is still a 5/10 she denies any chest pain, nausea, vomiting, diarrhea, constipation, weakness or fatigue. She did state that her arm was very sore to touch. The heat seems to be dissipating. Venous Dopplers have been ordered to rule out a blood clot the knot has moved from the middle of the arm towards the elbow. WBCs seem to be trending down. ultrasound of her arm showed no abscess just edema and soft tissue swelling. 05/20/22 0830 She herself is feeling ok, she denies chest pain, shortness of breath, nausea, vomiting, diarrhea, constipation, weakness, or fatigue. She did however state that she thinks her arm is worse. It did appear to be more edematous. She also has a new spot forming and it also has a knot under it. CT did not show any acute findings other than edema. Talked to Dr. Gurrola about the arm, as the main concern is compartment syndrome. 05/19/22? 11:30 Patient is a 8-year-old female with a past medical history of hypertension, hyperlipidemia who presented to the ED with complaints erythremia, swelling, itching and pain to the left extremity.? She stated that this all started on? Monday night.? Patient stated that she has a drain I at 3:00 a.m. in the morning due to itching, which created to get up.? When she got up and the morning to make the bed she founded had spider.? She said on Monday she had 2 knots 1 in her forearm and 1 on her wrist which appear to be stable.? Monday she stated that she had known oz and her arm was completely swollen and she came to the hospital.? She came to the hospital they prescribed her some Keflex.? She said disease she has been taking her antibiotics we should be however she went to bed on Monday at 10:00 p.m. at 2:00 a.m. in the morning she woke up to burning and hurting arm.? She stated that is very painful when it currently as a 4-10 however she just had a pain pill.? She also stated that she is having many different sensations in her arm ranging from itching, burning, pain, fever. patient stated that her arm has been swollen like that for couple days.? Her arm is very swollen has warmth and it is swollen double to her other arm.? She has 2 spots 1 on her wrist and 1 on her forearm have look like to purulent scabs. She denies chest pain, shortness of breath, nausea, vomiting, fevers, sweats, visual or hearing changes, weakness or fatigue.? Review of Systems Review of Systems: All systems reviewed & are unremarkable except as noted in HPI and below
[2022-05-21] MEDS: MUPIROCIN 2% OINT 22 GM TUBE 1 APPLIC TOPICAL ×2 (11:00→20:31)
[2022-05-21] MEDS: BETAMETHASONE/CLOTRIMAZOLE CR 15 GM TUBE 1 APPLIC TOPICAL ×2 (11:01→20:31)
[2022-05-21 14:00] VITALS: BP 115/66; PULSE 79; RESP 16; TEMP 36.1; O2SAT 92
[2022-05-21] MEDS: cefTRIAXone 2 GM in SODIUM CHLORIDE 0.9% IV 100 ML 200 ML IVPB (18:34)
[2022-05-21 21:43] VITALS: BP 101/68; PULSE 67; RESP 18; TEMP 36.4; O2SAT 95
--- NOTE | 2022-05-21 23:45 | PM.PNGS ---
Progress Note: A&P Assessment and Plan (1) Cellulitis: Code(s): L03.90 - Cellulitis, unspecified Status: Acute Assessment and Plan: Possibly somewhat improved. White count still slightly high result of vascular ultrasound upper extremity noted, no DVT. Other findings of some hypoechoic areas most likely is edema in between the tissues. Would consider at least partial time wearing Alex wraps to give compression and better venous return in the upper extremity. (2) Narcotic dependence: Code(s): F11.20 - Opioid dependence, uncomplicated Status: Acute (3) BMI 35.0-35.9,adult: Code(s): Z68.35 - Body mass index [BMI] 35.0-35.9, adult Status: Acute Assessment and Plan: encouraged maintenance of low-fat diet and portion control (4) Heavy smoker: Code(s): F17.200 - Nicotine dependence, unspecified, uncomplicated Status: Acute Assessment and Plan: encourage cessation Subjective Subjective Date/Time Seen: 05/21/22 11:45 Patient reports: no new complaints, feels better and other (Thinks the swelling in her left forearm has gone down some.) Review of Systems Review of Systems: All systems reviewed & are unremarkable except as noted in HPI and below Constitutional: Constitutional: Reports as per HPI, Denies chills and Denies fever(s) Cardiovascular: Cardiovascular: Denies chest pain and Denies dyspnea Respiratory: Respiratory: Reports no additional respiratory complaints and Denies dyspnea Gastrointestinal: Gastrointestinal: Reports as per HPI and Denies bloating Musculoskeletal: Musculoskeletal: Reports no additional musculoskeletal complaints Neurologic: Denies memory loss Psychiatric: Psychiatric: Denies anxiety and Denies memory loss Exam Skin: Other: Less redness on her arm than yesterday. No extension toward the axilla. Extrem: Other: Edema seems to be slightly better no open areas on skin of the volar surface of the form that I can see. Patient nurse have applied some use appearing to the small dark areas where there may have been some skin breakdown previously. Patient has full range of motion and use of her left arm and hand. Objective Data Vital Signs Vital Signs: Vital Signs - 24 hr 05/21/22 05:34 05/21/22 14:00 05/21/22 19:53 Temperature 36.3 C L 36.1 C L Pulse Rate 78 79 Respiratory Rate 18 16 Blood Pressure 117/81 115/66 Pulse Oximetry 93 92 Oxygen Delivery Room Air 05/21/22 21:43 Temperature 36.4 C Pulse Rate 67 Respiratory Rate 18 Blood Pressure 101/68 Pulse Oximetry 95 Oxygen Delivery Intake/Output Intake/Output: Intake & Output 05/18/22 05/19/22 05/20/22 05/21/22 23:59 23:59 23:59 23:59 Intake Total 2110 3460 2740 Output Total 800 Balance 2110 3460 1940 Meds/Results Medications: Active Medications Generic Name Dose Route Start Last Admin Trade Name Freq PRN Reason Stop Dose Admin Acetaminophen 650 mg 05/19/22 07:24 Acetaminophen 325 Mg Tablet PO Q4H PRN Mild Pain (1-3) or Fever Hydrocodone Bitart/Acetaminophen 1 tab 05/19/22 07:24 05/21/22 22:17 Hydrocodone/Acetaminophen (*Crx) 5-325 Mg Tablet PO 1 tab Q4H PRN Administration Pain Rated 4-6 Amlodipine Besylate 10 mg 05/20/22 09:00 05/21/22 08:19 Amlodipine Besylate 5 Mg Tablet PO 10 mg DAILY SHIELA Administration Clotrimazole 1 applic 05/19/22 09:00 05/21/22 20:31 Betamethasone/Clotrimazole Cr 15 Gm Tube TOPICAL 1 applic Q12HR SHIELA Administration Ceftriaxone Sodium 2 gm/ 100 mls @ 200 mls/hr 05/19/22 15:35 05/21/22 19:04 Sodium Chloride IVPB Infused Q24H SHIELA Infusion Vancomycin HCl 1,500 mg in 500 mls @ 333.333 mls/hr 05/20/22 21:00 05/21/22 22:18 Vancomycin 1,500 Mg/D5w 500 Ml IVPB Infused Q12H SHIELA Infusion Lorazepam 0.5 mg 05/19/22 15:34 Lorazepam (*Crx) 0.5 Mg Tablet PO DAILY PRN stress Morphine Sulfate 4 mg
[2022-05-22] MEDS: HYDROcodone/acetaminophen (*CRX) 5-325 MG TABLET 1 TAB PO ×5 (05:02→22:02)
[2022-05-22 05:40] VITALS: BP 124/72; PULSE 75; RESP 18; TEMP 36.2; O2SAT 92
[2022-05-22 06:09] LABS: Basophils Absolute Auto 0.1 K/mm3 (0.0-0.1); Basophils Percent Auto 0.7 % (0.2-1.2); Eosinophils Absolute Auto 0.4 K/mm3 (0-0.3); Eosinophils Percent Auto 3.9 % (0-4.4); Hemoglobin 13.5 g/dL (12.0-15.0); Immature Granulocyte Absolute 0.14 K/mm3 (0.00-0.031); Immature Granulocyte Percent A 1.4 % (0-0.5); Lymphocytes Absolute Auto 2.21 K/mm3 (0.9-3.2); Lymphocytes Percent Auto 22.6 % (18.3-44.2); Mean Corpuscular HGB Conc 32.1 g/dl (32-36); Mean Corpuscular Hemoglobin 29.3 pg (26-34); Mean Corpuscular Volume 91.3 fl (80-100); Mean Platelet Volume 10.4 fl (7.4-10.4); Monocytes Absolute Auto 0.7 K/mm3 (0.1-0.6); Monocytes Percent Auto 7.1 % (2.6-8.5); Neutrophils Absolute Auto 6.3 K/mm3 (1.3-6.7); Neutrophils Percent Auto 64.3 % (45.5-73.1); Platelet Count Result 231 k/mm3 (150-375); Red Cell Distribution Width 13.3 % (11.5-14.5); White Blood Count 9.8 K/mm3 (4.5-10.0)
[2022-05-22 06:28] LABS: Alanine Aminotransferase 100 U/L (6-35); Albumin Level 3.8 g/dL (3.5-5.1); Alkaline Phosphatase 79 U/L (38-126); Anion Gap 7 mmol/L (8-16); Aspartate Amino Transferase 47 U/L (14-36); Bilirubin,Total 0.6 mg/dL (0.2-1.3); Blood Urea Nitrogen 12 mg/dL (7-17); Calcium 8.4 mg/dL (8.4-10.2); Carbon Dioxide 25 mmol/L (22-30); Chloride 106 mmol/L (98-107); Estimated CRCL calculation 85 ml/min; Estimated Glomerular Filt Rate > 60; Glucose 99 mg/dL (65-110); Magnesium 2.2 mg/dL (1.6-2.3); Potassium 4.2 mmol/L (3.4-5.0); Sodium 138 mmol/L (137-145)
[2022-05-22] MEDS: MORPHINE SULFATE (*CRX) 4 MG/ML INJ IV PUSH (09:10)
[2022-05-22] MEDS: BETAMETHASONE/CLOTRIMAZOLE CR 15 GM TUBE 1 APPLIC TOPICAL ×2 (09:12→21:46)
[2022-05-22] MEDS: amLODIPine BESYLATE 5 MG TABLET 10 MG PO (09:12)
[2022-05-22] MEDS: MUPIROCIN 2% OINT 22 GM TUBE 1 APPLIC TOPICAL ×2 (09:12→21:46)
--- NOTE | 2022-05-22 09:30 | PM.IMPN ---
Progress Note: A&P Assessment and Plan (1) Cellulitis: Code(s): L03.90 - Cellulitis, unspecified Status: Acute Assessment and Plan: Left arm is swollen, red, with warmth Continue Vancomycin day 4, ceftriaxone day 4 WBC 9.8 Wound care consult, see wound note Trend redness, warmth, and swelling, which seems to be getting pain medications, will taper down Trend induration Added gabapentin CT with contrast of the left arm Subcutaneous edema no abscess venous Dopplers no DVT noted soft tissue ultrasound found cellulitis with skin thickening and subcutaneous edema (2) Bug bite: Code(s): W57.XXXA - Bitten or stung by nonvenomous insect and other nonvenomous arthropods, initial encounter Status: Acute Assessment and Plan: Patient reported a spider bite Wound care consult see above (cellulitis) Not convinced this is a bug bit at this point (3) Primary hypertension: Code(s): I10 - Essential (primary) hypertension Status: Acute Assessment and Plan: BP is 124/72 Continue home amlodipine 10mg Trend BP Adjust therapy as indicated (4) Transaminitis: Code(s): R74.01 - Elevation of levels of liver transaminase levels Status: Acute Assessment and Plan: AST/ALT elevated 47/100 Hep panel ordered Continue to trend Time Spent With Patient Time with patient: Greater than 35 minutes Subjective Date/time seen: 05/22/22 09:30 Interval history: 05/22/22 0930 Patient stated that she is having a lot of pain today. She stated just really hurts is sorted touch and she has is burning pain shooting through her arm. She rates her pain currently a 7/10 however she just got a dose of morphine which she stated was helping. The swelling and the warmth and redness are all improving. She denies any chest pain, shortness of breath, nausea, vomiting, diarrhea, constipation, weakness or fatigue. Will try little bit gabapentin to see if that helps for the burning sensation. I also asked patient to take pain pills instead of IV pain medicine to get her prepared for discharge. 05/21/22 10:00 Patient stated she is feeling okay today. She stated that she woke up in feels a little groggy. She did state that she has been in a little in the tired side. Her pain is still a 5/10 she denies any chest pain, nausea, vomiting, diarrhea, constipation, weakness or fatigue. She did state that her arm was very sore to touch. The heat seems to be dissipating. Venous Dopplers have been ordered to rule out a blood clot the knot has moved from the middle of the arm towards the elbow. WBCs seem to be trending down. ultrasound of her arm showed no abscess just edema and soft tissue swelling. 05/20/22 0830 She herself is feeling ok, she denies chest pain, shortness of breath, nausea, vomiting, diarrhea, constipation, weakness, or fatigue. She did however state that she thinks her arm is worse. It did appear to be more edematous. She also has a new spot forming and it also has a knot under it. CT did not show any acute findings other than edema. Talked to Dr. Gurrola about the arm, as the main concern is compartment syndrome. 05/19/22? 11:30 Patient is a 8-year-old female with a past medical history of hypertension, hyperlipidemia who presented to the ED with complaints erythremia, swelling, itching and pain to the left extremity.? She stated that this all started on? Monday night.? Patient stated that she has a drain I at 3:00 a.m. in the morning due to itching, which created to get up.? When she got up and the morning to make the bed she founded had spider.? She said on Monday she had 2 knots 1 in her forearm and 1 on her wrist which appear to be stable.? Monday she stated that she had known oz and her arm was completely swollen and she came to the hospital.? She came to the hospital they prescribed her some Keflex.? She said di
[2022-05-22 10:30] LABS: Hepatitis B Surface Antigen Negative (Negative)
[2022-05-22 10:35] LABS: HAV RESULT Negative (Negative); Hepatitis B Core IgM Result Negative (Negative)
[2022-05-22 10:57] LABS: Hepatitis C Virus Antibody Reactive (Negative)
--- NOTE | 2022-05-22 11:00 | PC.NURSE ---
Addendum entered by Mayra Vieira RN 05/22/22 11:04: Patient's sister is Beatrice Rocha that medications were returned to. Original Note: Lorazepam 0.5 mg tablets, total of 30.25 tablets and Hydrocodone 5/325 mg tablets total of 103 tablets returned to patient's sister, Josefina per patient. Josefina to take controlled substances home until patient discharges. Medication count verified prior to DC with floor RN.
[2022-05-22] MEDS: GABAPENTIN 100 MG CAPSULE PO ×2 (12:19→16:26)
[2022-05-22 14:00] VITALS: BP 101/69; PULSE 69; RESP 20; TEMP 36; O2SAT 96
[2022-05-22] MEDS: cefTRIAXone 2 GM in SODIUM CHLORIDE 0.9% IV 100 ML 200 ML IVPB (16:26)
[2022-05-22 22:00] VITALS: BP 90/65; PULSE 71; RESP 16; TEMP 35.8; O2SAT 95
[2022-05-23] MEDS: HYDROcodone/acetaminophen (*CRX) 5-325 MG TABLET 1 TAB PO ×3 (03:34→12:20)
[2022-05-23 06:00] VITALS: BP 109/80; PULSE 76; RESP 18; TEMP 36.1; O2SAT 95
[2022-05-23 06:13] LABS: Basophils Absolute Auto 0.1 K/mm3 (0.0-0.1); Eosinophils Absolute Auto 0.4 K/mm3 (0-0.3); Eosinophils Percent Auto 4.6 % (0-4.4); Hematocrit 41.3 % (37.0-47.0); Hemoglobin 13.2 g/dL (12.0-15.0); Immature Granulocyte Absolute 0.19 K/mm3 (0.00-0.031); Immature Granulocyte Percent A 2.3 % (0-0.5); Lymphocytes Percent Auto 28.1 % (18.3-44.2); Mean Corpuscular Hemoglobin 29.3 pg (26-34); Mean Corpuscular Volume 91.8 fl (80-100); Mean Platelet Volume 10.3 fl (7.4-10.4); Monocytes Absolute Auto 0.7 K/mm3 (0.1-0.6); Neutrophils Absolute Auto 4.5 K/mm3 (1.3-6.7); Platelet Count Result 247 k/mm3 (150-375); Red Cell Distribution Width 13.1 % (11.5-14.5); White Blood Count 8.2 K/mm3 (4.5-10.0)
[2022-05-23 06:24] LABS: Alanine Aminotransferase 65 U/L (6-35); Albumin Level 3.7 g/dL (3.5-5.1); Alkaline Phosphatase 75 U/L (38-126); Anion Gap 6 mmol/L (8-16); Aspartate Amino Transferase 28 U/L (14-36); Bilirubin,Total 0.2 mg/dL (0.2-1.3); Blood Urea Nitrogen 11 mg/dL (7-17); Calcium 8.3 mg/dL (8.4-10.2); Carbon Dioxide 27 mmol/L (22-30); Chloride 107 mmol/L (98-107); Estimated CRCL calculation 98 ml/min; Estimated Glomerular Filt Rate > 60; Glucose 100 mg/dL (65-110); Magnesium 2.1 mg/dL (1.6-2.3); Potassium 4.3 mmol/L (3.4-5.0); Sodium 140 mmol/L (137-145)
[2022-05-23] MEDS: GABAPENTIN 100 MG CAPSULE PO ×2 (08:12→12:20)
[2022-05-23] MEDS: MUPIROCIN 2% OINT 22 GM TUBE 1 APPLIC TOPICAL (08:12)
[2022-05-23] MEDS: BETAMETHASONE/CLOTRIMAZOLE CR 15 GM TUBE 1 APPLIC TOPICAL (08:12)
[2022-05-23] MEDS: amLODIPine BESYLATE 5 MG TABLET 10 MG PO (09:31)
--- NOTE | 2022-05-23 12:00 | PM.DS ---
DS: Admitting Diagnosis Discharge Date 05/23/2022 at 12 p.m. Admitting Diagnosis Cellulitis of the left upper extremity DS: Discharge Diagnosis Discharge Diagnosis (1) Cellulitis: Code(s): L03.90 - Cellulitis, unspecified Status: Acute Assessment and Plan: Left arm is swollen, red, with warmth Continue Vancomycin day 4, ceftriaxone day 4 WBC 9.8 Wound care consult, see wound note Trend redness, warmth, and swelling, which seems to be getting pain medications, will taper down Trend induration Added gabapentin CT with contrast of the left arm Subcutaneous edema no abscess venous Dopplers no DVT noted soft tissue ultrasound found cellulitis with skin thickening and subcutaneous edema (2) Bug bite: Code(s): W57.XXXA - Bitten or stung by nonvenomous insect and other nonvenomous arthropods, initial encounter Status: Acute Assessment and Plan: Patient reported a spider bite Wound care consult see above (cellulitis) Not convinced this is a bug bit at this point (3) Primary hypertension: Code(s): I10 - Essential (primary) hypertension Status: Acute Assessment and Plan: BP is 124/72 Continue home amlodipine 10mg Trend BP Adjust therapy as indicated (4) Transaminitis: Code(s): R74.01 - Elevation of levels of liver transaminase levels Status: Acute Assessment and Plan: AST/ALT elevated 47/100 Hep panel ordered Continue to trend DS: Summary Hospital Course Hospital Course: Patient is a 62-year-old female with past medical history of hypertension who presented to the ED with complaints pain, numbness, tingling, swelling in her left extremity. Patient initially thought it was is spider bite that she found does spider in her bed. White blood cell count upon arrival was 12.4 and was trending upward. Today white count is 8.2. Patient was placed on vancomycin and ceftriaxone. CT of the left arm did not show any abscess. Ultrasound of left arm showed swelling edema soft tissue damage. Venous Dopplers noted no DVT. General surgery is consulted for further evaluation as her arm, redness, swelling worsened. Patient has been given pain medicine and was started on gabapentin for the burning and tingling in her arm and hand. We patient appears to be great today. She also stated that she feels great and is ready to go. She denies any chest pain, shortness of breath, nausea, vomiting, diarrhea, constipation, weakness or fatigue. Her arm does look significantly better. The reddened spot up by her wrist is gotten smaller along with this but in the middle of her forearm. The redness looks to be completely dissipated and the swelling looks to be significantly reduced. I did offer the patient pain medicine however she stated that she gets pain medicine anyway from her doctor for chronic pain. Went over the antibiotic choice with the pharmacist and we decided Bactrim 1 tab of double strength q.12. I did give the patient specific instructions about taking her Bactrim with a full glass of water and plenty of water to prevent kidney injury. Status at Discharge Functional status at discharge: independent ambulation Overall status at discharge: patient is progressing back to baseline Time Spent with Patient Time attestation: Total time spent providing and/or coordinating discharge services: 38 minutes Time spent: Greater than 30 minutes Specific discharge activities: Diagnostic testing, chart review, developing a treatment plan, education, care coordination documentation, physical exam, result review Exam Const: General: cooperative, no acute distress, well developed, alert and awake Nutritional Appearance: well nourished and overweight Orientation/consciousness: oriented to person, oriented to place, oriented to time and patient oriented x3 Limitations: no limitations HENMT: Head: normal to inspection
--- NOTE | 2022-05-23 16:51 | PM.PNGS ---
Progress Note: A&P Assessment and Plan (1) Cellulitis: Code(s): L03.90 - Cellulitis, unspecified Status: Acute Assessment and Plan: Continues to improve. No clinical evidence of an abscess or necrotic tissue. Imaging without any suggestion of abscess. No indication for surgical intervention. Will sign off at this time. Continue antibiotics per hospitalist discretion. Okay to discharge from our standpoint and no follow-up needed with surgery. Plan I have discussed the patient's case and plan of care with Dr. Gurrola. Subjective Subjective Date/Time Seen: 05/23/22 10:41 Patient reports: no new complaints, feels better and afebrile Interval history: This is 8-year-old female who presented with left upper extremity cellulitis. All imaging reviewed with no evidence of an abscess or fluid collection. She was admitted and started on IV antibiotics. Chart reviewed. Patient seen and examined. Reports feeling much better. Overall, her swelling and redness on the left upper extremity has improved. Also reports the pain in her left upper extremity has improved. No other complaints at this time. Review of Systems Review of Systems: All systems reviewed & are unremarkable except as noted in HPI and below Exam Skin: Other: Left arm with no erythema and only mild swelling, which has reportedly improved. Two small darkened areas with 1 on the forearm and 1 more distal near the wrist. Both with slight purple discoloration, but no open wounds, no drainage, no fluctuance, no crepitus. Objective Data Vital Signs Vital Signs: Vital Signs - 24 hr 05/22/22 22:00 05/22/22 21:00 05/23/22 06:00 Temperature 96.4 F L 97.0 F L Pulse Rate 71 76 Respiratory Rate 16 18 Blood Pressure 90/65 L 109/80 Pulse Oximetry 95 95 Oxygen Delivery Room Air Intake/Output Intake/Output: Intake & Output 05/20/22 05/21/22 05/22/22 05/23/22 23:59 23:59 23:59 23:59 Intake Total 3460 2740 2188 679 Output Total 800 Balance 3460 1940 2188 679 Meds/Results Radiology Results: ITS Impressions Upper Extremity CT 05/20/22 06:51 IMPRESSION: 1. Subcutaneous edema in left upper extremity. No abscess. 2. Polyarticular osteoarthritis. Soft Tissue Ultrasound 05/20/22 14:50 IMPRESSION: 1. Cellulitis with skin thickening and subcutaneous edema at the volar aspect of the wrist. No abscess. Venous Doppler Study 05/21/22 17:10 IMPRESSION: 1. No deep venous thrombosis. 2. Irregular deep tissue fluid and/or phlegmon, with overlying edema, may represent cellulitis and/or deep tissue infection, developing abscess not excluded. Labs Labs: Laboratory Results - last 24 hr 05/23/22 05/23/22 05:49 05:49 WBC 8.2 RBC 4.50 Hgb 13.2 Hct 41.3 MCV 91.8 MCH 29.3 MCHC 32.0 RDW 13.1 Plt Count 247 MPV 10.3 Immature Gran % (Auto) 2.3 H Neut % (Auto) 55.0 Lymph % (Auto) 28.1 Bay % (Auto) 9.0 H Eos % (Auto) 4.6 H Baso % (Auto) 1.0 Lymph # (Auto) 2.30 Bay # (Auto) 0.7 H Eos # (Auto) 0.4 H Baso # (Auto) 0.1 Abs Immat Gran (auto) 0.19 H Absolute Neuts (auto) 4.5 Absolute Nucleated RBC 0.0 Nucleated RBC % 0.0 Sodium 140 Potassium 4.3 Chloride 107 Carbon Dioxide 27 Anion Gap 6 L BUN 11 Creatinine 0.60 L Estim Creat Clear Calc 98 Estimated GFR > 60 Glucose 100 Calcium 8.3 L Magnesium 2.1 Total Bilirubin 0.2 AST 28 ALT 65 H Alkaline Phosphatase 75 Total Protein 7.0 Albumin 3.7 Quality VTE Prophylaxis VTE prophylaxis: mechanical ordered and pharmacologic ordered
== END 2022-05-23 13:45 | disposition home or self-care (01) | DRG 383 ==
LOC: ANHED 07:39 → ANH3MEDSUR 08:13
PROVIDERS: Admitting Provider Internal Medicine; Emergency Provider Emergency Medicine; PCP Family Medicine; Visit Provider Nurse Practitioner
DX: L03.114 Cellulitis of left upper limb (principal); I10 Essential (primary) hypertension; E78.5 Hyperlipidemia, unspecified; F11.20 Opioid dependence, uncomplicated; F17.210 Nicotine dependence, cigarettes, uncomplicated; R74.01 Elevation of levels of liver transaminase levels; Z20.822 Contact with and (suspected) exposure to COVID-19; Z79.899 Other long term (current) drug therapy
CPT/HCPCS: 36415; 73201; 76882; 80048; 80053; 80074; 80202; 83735; 85025; 85652; 86140; 87040; 87077; 87522; 93971; 96365; 96375; 99285; A9270; C9803; G0378; G0379; J0696; J2270; J3370; Q9967; U0003; U0005

== ENCOUNTER 2023-07-03 10:20 | Outpatient (CLI) | payer OTHER, SELFPAY ==
[2023-07-03 12:38] LABS: Alanine Aminotransferase 21 U/L (6-35); Albumin Level 4.2 g/dL (3.5-5.1); Alkaline Phosphatase 60 U/L (38-126); Anion Gap 10 mmol/L (8-16); Aspartate Amino Transferase 22 U/L (14-36); Bilirubin,Total 0.6 mg/dL (0.2-1.3); Blood Urea Nitrogen 15 mg/dL (7-17); Calcium 9.1 mg/dL (8.4-10.2); Carbon Dioxide 24 mmol/L (22-30); Chloride 106 mmol/L (98-107); Estimated Glomerular Filt Rate > 60; Glucose 96 mg/dL (65-110); Potassium 4.3 mmol/L (3.4-5.0); Sodium 140 mmol/L (137-145)
[2023-07-03 12:45] LABS: Hemoglobin A1C 5.5 % (<5.7)
[2023-07-03 14:13] LABS: Free T4 Free Thyroxine Reflex 1.37 ng/dL (0.78-2.19)
[2023-07-03 14:56] LABS: Total Triiodothyronine (T3) 1.37 NG/ML (0.97-1.69)
== END 2023-07-03 10:21 | disposition home or self-care (01) ==
PROVIDERS: PCP Family Medicine; Visit Provider Family Medicine
DX: E03.9 Hypothyroidism, unspecified (principal); R73.03 Prediabetes
CPT/HCPCS: 36415; 80053; 83036; 84439; 84443; 84480

== ENCOUNTER 2023-11-01 09:10 | Outpatient (CLI) | payer OTHER, SELFPAY ==
[2023-11-01 10:12] LABS: Alanine Aminotransferase 19 U/L (6-35); Albumin Level 4.2 g/dL (3.5-5.1); Alkaline Phosphatase 64 U/L (38-126); Anion Gap 10 mmol/L (8-16); Aspartate Amino Transferase 25 U/L (14-36); Bilirubin,Total 0.8 mg/dL (0.2-1.3); Blood Urea Nitrogen 14 mg/dL (7-17); Calcium 9.1 mg/dL (8.4-10.2); Carbon Dioxide 28 mmol/L (22-30); Chloride 103 mmol/L (98-107); Estimated Glomerular Filt Rate > 60; Glucose 102 mg/dL (65-110); Potassium 4.4 mmol/L (3.4-5.0); Sodium 141 mmol/L (137-145)
[2023-11-01 10:43] LABS: Hemoglobin A1C 5.3 % (<5.7)
[2023-11-01 12:04] LABS: Free T4 Free Thyroxine Reflex 1.33 ng/dL (0.78-2.19)
[2023-11-01 13:17] LABS: Total Triiodothyronine (T3) 1.31 NG/ML (0.97-1.69)
== END 2023-11-01 09:11 | disposition home or self-care (01) ==
LOC: ANHLAB 09:12
PROVIDERS: PCP Family Medicine; Visit Provider Family Medicine
DX: E03.9 Hypothyroidism, unspecified (principal); R73.03 Prediabetes; I10 Essential (primary) hypertension
CPT/HCPCS: 36415; 80053; 83036; 84439; 84443; 84480

== ENCOUNTER 2024-03-27 13:39 | Outpatient (CLI) | payer OTHER, SELFPAY ==
--- NOTE | ~2024-03-27 | DEXA_ITS ---
Bone Density Report Name: YRN SHAIKH Age: 63 Sex: Female Ethnicity: White Date of : 1960 Indication: postmenopausal; screening for osteoporosis; parental hip fracture; height loss; Referring Provider: DORITA DE OLIVEIRA Study: Bone densitometry was performed. Exam Date: March 27, 2024 Accession number: [id number] Bone Density: Region BMD T-score Z-score Classification AP Spine(L1, L2, L3) 0.717 -2.7 -1.2 Osteoporosis Femoral Neck (Left) 0.571 -2.5 -1.1 Osteoporosis Total Hip (Left) 0.691 -2.1 -1.0 Osteopenia Femoral Neck (Right) 0.652 -1.8 -0.4 Osteopenia Total Hip (Right) 0.706 -1.9 -0.9 Osteopenia Total Hip Mean 0.699 -2.0 -1.0 Osteopenia World Health Organization criteria for BMD impression classify patients as: Normal (T-score at or above -1.0), Osteopenia (T-score between -1.0 and -2.5), or Osteoporosis (T-score at or below -2.5). 10-year Fracture Risk: FRAX not reported because: Some T-score for Spine Total or Hip Total or Femoral Neck at or below -2.5 Clinical Information Provided by Patient: Parent has had a hip fracture Patient maximum height was 67.0 Menopause Age: 52 No regular weight bearing exercise Drinks caffeinated beverages Onset of menses at age 18 Number of children 0 Impression: The patient has osteoporosis, based on the Total Spine T-score. The patient has risk factors, including: parental hip fracture. Discussion: INCREASED RISK OF FRACTURE. BONE DENSITY IS UNDESIRABLY LOW AT ONE OR MORE SKELETAL SITES, CONSISTENT WITH POSTMENOPAUSAL OSTEOPOROSIS. This patient's lowest T-score meets the World Health Organization's (WHO) criteria for osteoporosis at one or more sites (T-score -2.5 or below). In untreated patients, the risk of osteoporotic fracture increases approximately two-fold for each 1.0 SD decrease in T-score. Low bone density is not the only risk factor for fracture; also consider factors such as patient's age, frailty or poor health, risk of falling, risk of injury, previous osteoporotic fracture, family history of osteoporosis, cigarette smoking, low body weight, etc. Not everyone with low bone mineral density has osteoporosis; osteomalacia and other metabolic bone disorders should also be considered. Patients who have osteoporosis should be evaluated for specific diseases and conditions (secondary causes) that may cause or contribute to bone loss. The [place] [employer] (AACE) and National Osteoporosis Foundation (NOF) recommend pharmacologic intervention for all postmenopausal women whose T-score is in this range. The patient should follow a healthful lifestyle (good nutrition with adequate calcium and vitamin D, and appropriate weight-bearing exercise). Follow-Up: Consider a repeat BMD and Vertebral Fracture Assessment (VFA) ex
--- NOTE | ~2024-03-27 | MM_ITS ---
EXAMINATION: MM screening cali BI w shruthi HISTORY: Screening TECHNIQUE: Craniocaudal and mediolateral oblique 3-D tomosynthesis images were obtained and synthetic 2-D images were generated. CAD analysis was submitted and interpreted. COMPARISON: Comparison to multiple prior studies sequentially, with oldest reviewed study dated 11/16. BREAST PARENCHYMAL COMPOSITION: Not dense: There are scattered areas of fibroglandular density. FINDINGS: There is no evidence of suspicious mass, calcification, or architectural distortion to sugg est malignancy in either breast. There has been no suspicious interval change. IMPRESSION: 1. No mammographic evidence of malignancy. 2. Recommend routine screening mammography in one year. BI-RADS Category 1: Negative Reviewed, dictated and finalized at location A.
== END 2024-03-27 13:40 | disposition home or self-care (01) ==
LOC: ANHIMG 13:40
PROVIDERS: PCP Family Medicine; Visit Provider Family Medicine
DX: Z12.31 Encounter for screening mammogram for malignant neoplasm of breast (principal); Z78.0 Asymptomatic menopausal state; M85.89 Other specified disorders of bone density and structure, multiple sites; M81.0 Age-related osteoporosis without current pathological fracture
CPT/HCPCS: 77063; 77067; 77080

== ENCOUNTER 2024-04-15 08:29 | Outpatient (CLI) | payer OTHER, SELFPAY ==
[2024-04-15 09:17] LABS: Basophils Percent Auto 0.5 % (0.2-1.2); Eosinophils Absolute Auto 0.1 K/mm3 (0-0.3); Eosinophils Percent Auto 1.4 % (0-4.4); Hematocrit 47.5 % (37.0-47.0); Hemoglobin 15.4 g/dL (12.0-15.0); Immature Granulocyte Absolute 0.04 K/mm3 (0.00-0.031); Immature Granulocyte Percent A 0.5 % (0-0.5); Lymphocytes Absolute Auto 2.26 K/mm3 (0.9-3.2); Lymphocytes Percent Auto 29.6 % (18.3-44.2); Mean Corpuscular HGB Conc 32.4 g/dl (32-36); Mean Corpuscular Hemoglobin 28.8 pg (26-34); Mean Corpuscular Volume 88.8 fl (80-100); Mean Platelet Volume 10.7 fl (7.4-10.4); Monocytes Absolute Auto 0.6 K/mm3 (0.1-0.6); Monocytes Percent Auto 8.1 % (2.6-8.5); Neutrophils Absolute Auto 4.6 K/mm3 (1.3-6.7); Neutrophils Percent Auto 59.9 % (45.5-73.1); Platelet Count Result 247 k/mm3 (150-375); Red Blood Count 5.35 M/mm3 (4.2-5.4); Red Cell Distribution Width 13.9 % (11.5-14.5); White Blood Count 7.6 K/mm3 (4.5-10.0)
[2024-04-15 11:25] LABS: Free T4 Free Thyroxine Reflex 1.45 ng/dL (0.78-2.19)
[2024-04-15 13:29] LABS: Total Triiodothyronine (T3) 1.43 NG/ML (0.97-1.69)
[2024-04-16 16:52] LABS: Iron 116 ug/dL (37-170)
[2024-04-16 16:59] LABS: Percent Iron Saturation 33 % (20-50)
== END 2024-04-15 08:30 | disposition home or self-care (01) ==
LOC: ANHLAB 08:30
PROVIDERS: PCP Family Medicine; Visit Provider Family Medicine
DX: R53.83 Other fatigue (principal); E03.9 Hypothyroidism, unspecified; D58.2 Other hemoglobinopathies
CPT/HCPCS: 36415; 80053; 82728; 83540; 83550; 84439; 84443; 84480; 85025

== ENCOUNTER 2024-04-16 09:38 | Outpatient (CLI) | payer OTHER, SELFPAY ==
[2024-04-16 10:19] LABS: Alanine Aminotransferase 15 U/L (6-35); Albumin Level 4.3 g/dL (3.5-5.1); Alkaline Phosphatase 68 U/L (38-126); Anion Gap 5 mmol/L (4-12); Aspartate Amino Transferase 22 U/L (14-36); Bilirubin,Total 0.9 mg/dL (0.2-1.3); Blood Urea Nitrogen 13 mg/dL (7-17); Calcium 8.9 mg/dL (8.4-10.2); Carbon Dioxide 25 mmol/L (22-30); Chloride 109 mmol/L (98-107); Estimated Glomerular Filt Rate > 60; Glucose 100 mg/dL (65-110); Potassium 4.2 mmol/L (3.4-5.0); Sodium 139 mmol/L (137-145)
== END 2024-04-16 09:39 | disposition home or self-care (01) ==
LOC: ANHLAB 09:41
PROVIDERS: PCP Family Medicine; Visit Provider Family Medicine
DX: I10 Essential (primary) hypertension (principal)
CPT/HCPCS: 36415; 80053

== ENCOUNTER 2025-04-22 13:56 | Outpatient (CLI) | payer OTHER, SELFPAY ==
--- NOTE | ~2025-04-22 | MM_ITS ---
EXAMINATION: MM screening cali BI w shruthi HISTORY: Screening TECHNIQUE: Craniocaudal and mediolateral oblique 3-D tomosynthesis images were obtained and synthetic 2-D images were generated. CAD analysis was submitted and interpreted. COMPARISON: Comparison to multiple prior studies sequentially, with oldest reviewed study dated 11/17. BREAST PARENCHYMAL COMPOSITION: Not Dense: The breasts are almost entirely fatty. FINDINGS: There is no evidence of suspicious mass, calcification, or architectural distortion to sugg est malignancy in either breast. There has been no suspicious interval change. IMPRESSION: 1. No mammographic evidence of malignancy. 2. Recommend routine screening mammography in one year. BI-RADS Category 1: Negative Reviewed, dictated and finalized at location A.
== END 2025-04-22 13:57 | disposition home or self-care (01) ==
PROVIDERS: PCP Family Medicine; Visit Provider Family Medicine
DX: Z12.31 Encounter for screening mammogram for malignant neoplasm of breast (principal)
CPT/HCPCS: 77063; 77067